=== PATIENT | female | born 1980 | race Caucasian/White ===

== ENCOUNTER 2022-08-09 14:34 | Outpatient (CLI) | payer OTHER ==
--- NOTE | 2022-08-10 10:39 | MRI Report ---
PROCEDURE: Knee LT W/O INDICATIONS: LEFT KNEE PAIN TECHNIQUE: Noncontrast sagittal PD fast spin echo and T2 fast spin echo with fat saturation, sagittal 3-D gradie nt sequence with fat saturation; coronal T1 spin echo and PD fast spin echo with fat saturation, and axial PD fast spin echo with fat saturation through the knee. COMPARISON: None. FINDINGS: Image quality: Excellent. Menisci: There is intrasubstance degeneration in the posterior horn the medial meniscus. No discrete meniscal tear. The lateral meniscus demonstrates normal morphology and internal signal. The meniscal root ligaments appear intact. Cruciate ligaments: The anterior and posterior cruciate ligaments appear intact. Medial structures: The medial collateral ligament appears intact. The semimembranosus tendon insert ions and meniscocapsular junction appear intact. Visualized portions of the pes anserinus tendons ap pear normal. No abnormal bursal fluid. Lateral structures: The lateral collateral ligament, long and short heads of the biceps femoris tend on appear intact. The popliteus tendon appears normal. Iliotibial band appears normal. Anterior structures: The quadriceps and patellar tendons appear intact. There is thickening of quadr iceps and patellar tendons, consistent with tendinitis. Patellar alignment is normal. No femoral tro chlear dysplasia or ventral trochlear prominence. No edema in the infrapatellar fat pad. Bones and cartilage: No bone marrow contusions or fractures. There is cartilage thinning and fibrill ation in patella, more pronounced in the medial facet. Joint space: There is [id number] knee joint fluid. No Warren's cyst. Normal appearing synovi al plicae are incidentally noted. IMPRESSION: 1. 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 2. Chondromalacia patella. 3. Vxacd-[id number]-[id number] knee joint effusion. 4. Low-grade quadriceps tendinitis and patellar tendinitis. Reviewed by: Junior Bashir MD on 08/10/2022 10:38 AM PDT Approved by: Junior Bashir MD on 08/10/2022 10:38 AM PDT Station ID: [id number]
== END 2022-08-09 14:35 | disposition home or self-care (01) ==
LOC: DI 14:34
PROVIDERS: ATTEND Physician Assistant
DX: M23.322 Other meniscus derangements, posterior horn of medial meniscus, left knee (principal); M22.42 Chondromalacia patellae, left knee; M25.462 Effusion, left knee; M76.52 Patellar tendinitis, left knee; M76.892 Other specified enthesopathies of left lower limb, excluding foot